=== PATIENT | female | born 1965 | race Caucasian/White ===

== ENCOUNTER 2017-10-02 13:05 | Observation (INO) ==
[2017-10-02] MEDS ORDERED: Piperacillin/Tazobactam 3.375 GM in D5% in Water (Mini-Bag+) 100 ML IVPB ONE (13:56)
--- NOTE | 2017-10-02 13:59 | Emergency Department Note ---
Disposition Clinical Impression: Cat bite Qualifiers: Encounter type: initial encounter Qualified Code(s): W55.01XA - Bitten by cat, initial encounter Cellulitis Qualifiers: Site of cellulitis: extremity Site of cellulitis of extremity: upper extremity Laterality: unspecified laterality Qualified Code(s): L03.119 - Cellulitis of unspecified part of limb Disposition: Admitted As Inpatient Condition: Good Referrals: Nuria Bethea DO [Primary Care Provider] - Forms: ED Satisfaction Letter Time of Disposition: 14:08 Animal Bite HPI - General Chief Complaint: ED Animal Bite Stated Complaint: Cat bite/scratch on hand Time Seen by Provider: 10/02/17 13:53 Source: patient Limitations: no limitations Nursing Notes Reviewed: Yes Vital Signs Reviewed: Yes - History of Present Illness HPI Narrative: 52-year-old with Bite yesterday she was taking her To the that and it bit her in the left hand and scratched her right. Her left hand is markedly swollen and red and warm to touch today. The patient has had the cat For 3 years it's up to date on his immunizations. Pt Subjective Complaint: animal bite Onset (ago): hour(s) Animal: cat (24) Description of Animal: household pet Mechanism: bite, scratch Bilateral: hand Pain Description: burning Pain Scale: 4 Context: provoked Associated symptoms: Reports: erythema - Related Data Previous Rx's Medication Instructions Recorded Cyclobenzaprine [Flexeril] 10 mg PO TID #20 tablet 12/10/15 Ibuprofen [Motrin] 600 mg PO Q8HR #20 tab 12/10/15 predniSONE [PredniSONE] 40 mg PO DAILY #4 tablet 12/10/15 Naproxen [Naprosyn] 500 mg PO BID PRN #15 tablet 03/30/16 Diclofenac Sodium [Voltaren] 50 mg PO Q8HR #30 tablet. 01/21/17 Tramadol HCl [Ultram] 50 mg PO QID PRN #20 tab 01/21/17 predniSONE [PredniSONE] 60 mg PO DAILY #15 tablet 01/21/17 Allergies Allergy/AdvReac Type Severity Reaction Status Date / Time No Known Allergies Allergy Verified 10/02/17 14:15 All systems ED: reviewed and negative except as stated. Constitutional: Denies: fever, chills, weakness, weight change Eyes: Denies: eye pain, eye discharge, vision change ENT ED: Denies: ear pain, throat pain, dental pain, hearing loss, epistaxis, congestion, dysphagia Cardiovascular: Denies: chest pain, palpitations, dyspnea on exertion, edema, syncope Respiratory: Denies: cough, dyspnea, wheezes, hemoptysis, stridor Gastrointestinal: Denies: abdominal pain, nausea, vomiting, diarrhea, constipation, hematemesis, melena, hematochezia Genitourinary: Denies: dysuria, frequency, hematuria, discharge Musculoskeletal: Reports: arthralgia. Denies: back pain, neck pain, myalgia Integumentary: Denies: rash, abrasion, lesions Neurological: Denies: headache, weakness, numbness, paresthesias, confusion, abnormal gait, vertigo Psychiatric: Denies: anxiety, depression, suicidal thoughts, homicidal thoughts , auditory hallucinations, visual hallucinations Endocrine: Denies: fatigue Hematological/Lymphatic: Denies: easy bleeding, easy bruising Allergic/Immunologic: Denies: facial swelling, urticaria Past Medical History - Past Medical History Medical history: Reports: hypertension Surgical history: Reports: breast surgery Psychiatric history: Reports: no psych history - Social History Smoking Status: Former smoker Smokeless Tobacco Status: No Alcohol use: Reports: none Drug use: Reports: none Physical Exam - General Limitations: no limitations General appearance: alert, in no apparent distress - Head Head exam: atraumatic, normocephalic, normal inspection - Eye Eye exam: Present: normal appearance, PERRL, EOMI - ENT ENT exam: normal exam, normal oropharynx, mucous membranes moist - Neck Neck exam: Present: normal inspection, full ROM, trachea midline - Chest Chest inspection: Present: normal inspection, symmetric chest wall rise - Respiratory Respiratory exam: Present: normal lung sounds bilaterally - Cardiovascular Cardiovascular exam: Present: regular rate, normal rhythm, normal heart sounds - Abdominal Exam Abdominal exam: Present: soft, Non-Tender. Absent: tenderness, distention, guarding, rebound, rigidity - Expanded Upper Extremity Exam Hand exam: Present: tenderness, swelling, erythema Vascular exam: Normal: capillary refill, radial pulse - Expanded Lower Extremity Exam Neurovascular/Tendon exam: Absent: motor deficit, sensory deficit, tendon deficit Gait: observed and normal - Back Exam Back exam: Present: normal inspection, full ROM. Absent: tenderness - Neurological Exam Neurological exam: Present: alert, oriented X3 - Psychiatric Psychiatric exam: Present: normal affect, normal mood - Skin Skin exam: Present: warm, dry, intact, normal color Course - Reevaluation(s) Reevaluation #1: 52-year-old with a Bite yesterday on her hand with marked redness and swelling of the hand. Patient will be admitted for IV antibiotics. Time: 14:26 - Consultations Consultation #1: Discussed with , admit. Time: 14:26 Vital Signs Temperature 98.4 F 10/02/17 13:18 Pulse Rate 90 10/02/17 13:18 Respiratory Rate 16 10/02/17 13:18 Blood Pressure 145/85 10/02/17 13:18 O2 Sat by Pulse Oximetry 98 10/02/17 13:18 Temperature 98.4 F 10/02/17 13:18 Pulse Rate 90 10/02/17 13:18 Respiratory Rate 16 10/02/17 13:18 Blood Pressure 145/85 10/02/17 13:18 O2 Sat by Pulse Oximetry 98 10/02/17 13:18 Oxygen Delivery Oxygen Delivery Room Air Animal Bite - Radiology Data Radiology results reviewed: Yes I reviewed the patient's radiology results. Hand X-Ray 10/02/17 13:54 IMPRESSION: No radiographic findings of osteomyelitis, however, MRI is more sensitive in detection of early osteomyelitis as clinically indicated. Age-indeterminate fracture of the 5th metacarpal head sesamoid versus a congenital bipartite morphology, recommend correlation with tenderness at this site and follow-up should radiography could be performed as clinically indicated. Please note that the sesamoid bones along the volar aspect of the 5th metacarpal bone for correlation with point tenderness. Presented to any previously performed radiography would also be helpful to determine the chronicity of this finding. D/ / Lon Dewitt MD / Lon Dewitt MD Interpreting Provider: Lon Dewitt MD
[2017-10-02] MEDS ORDERED: Tdap (Boostrix) Vaccine 0.5 ML SYRINGE IM ONE (14:01)
[2017-10-02 14:31] LABS: Basophils # 0.1 K/mcL (0.0-0.2); Basophils % 0.6 %; Eosinophils # 0.4 K/mcL (0.0-0.6); Eosinophils % 2.3 %; Hematocrit 41.1 % (35.3-44.9); Hemoglobin 13.6 g/dL (11.5-15.4); Immature Granulocytes % 0.4 % (0-4); Lymphocytes # 2.6 K/mcL (0.6-4.6); Lymphocytes % 16.1 %; Mean Corpuscular HGB Conc 33.1 g/dL (31.6-35.5); Mean Corpuscular Hemoglobin 29.2 pg (28.0-33.3); Mean Corpuscular Volume 88.2 fL (83.0-100.0); Mean Platelet Volume 10.2 fL (9.4-12.4); Monocytes # 1.5 K/mcL (0.0-1.3); Monocytes % 9.4 %; Neutrophils # 11.6 K/mcL (1.6-8.9); Platelet Count 321 K/mcL (140-400); Red Blood Count 4.66 M/mcL (3.82-4.97); Red Cell Distribution Width 13.9 % (11.5-14.5); Segmented Neutrophils % 71.2 %
[2017-10-02] MEDS ORDERED: Piperacillin/Tazobactam 3.375 GM in Water for inj. (sterile) 20 ML 20 ML IVP ONE (15:00)
[2017-10-02 15:11] LABS: BUN/Creatinine Ratio 16 (6-26); Blood Urea Nitrogen 11 mg/dL (6-20); Calcium 9.2 mg/dL (8.6-10.3); Carbon Dioxide 24 mEq/L (23-29); Chloride 103 mEq/L (98-107); Glucose 90 mg/dL (70-105); Osmolality,Calculated 281 (280-300); Potassium 3.6 mEq/L (3.5-5.1); Sodium 136 mEq/L (136-145); eGFR For African Americans > 60 (> 60); eGFR For Non-African Americans > 60 (> 60)
[2017-10-02] MEDS ORDERED: Naloxone 0.4 MG/ML INJ IVP PRN (15:34)
[2017-10-02] MEDS ORDERED: Acetaminophen 325 MG TABLET PO PRN (15:34)
--- NOTE | 2017-10-02 15:54 | Internal Med History&Physical ---
Date of Encounter: 10/02/17 Time of Encounter: 15:51 Assessment and Plan (1) Cellulitis Current visit: Yes Status: Acute The patient does have significant swelling and tenderness on the dorsum of the left hand. She also had some redness on the left hand on the dorsum is well. There is a couple of scratches on the left forearm. She does not have swelling on her right hand at the moment. The patient has received a dose of Zosyn. We will switch that to Unasyn. Follow-up cultures. We will torin the area to monitor improvement or worsening of cellulitis. No need for any surgical consult at the moment. We will check an MRI of that area. The x-ray did mention age indeterminate fracture of the fifth metacarpal head sesamoid possibly. She does not have any tenderness in that area however on exam. Continue with pain control. The patient received tetanus shot in the emergency department. Qualifiers: Site of cellulitis: extremity Site of cellulitis of extremity: upper extremity Laterality: left Qualified Code(s): L03.114 - Cellulitis of left upper limb (2) Hypertension Current visit: Yes Status: Acute Continue home meds including amlodipine and hydrochlorothiazide. Patient's blood pressure is stable. Qualifiers: Hypertension type: essential hypertension Qualified Code(s): I10 - Essential (primary) hypertension (3) DVT prophylaxis Current visit: Yes Status: Acute [facility] Internal Medicine - H&P: HPI Chief complaint: Hand swelling Admitted From: Home Plans for Post Hospital Care: Home History of present illness: Ms. Land is a 52 year old female who has a history of hypertension as well as chronic back pain with spinal stenosis and peripheral neuropathy who presents with left hand swelling that has started yesterday noon after a cat Bite. She was in the process of putting her cat into the carrier before going to the cat' s veterinary appointment. That is when the cat bit her. She was also scratched on her right forearm. She experienced pain right after that. She noticed swelling throughout the day. In the morning she noticed redness in more swelling. She denies any fever or sweats. Denies any headache nausea or vomiting chest pain shortness of breath abdominal pain and urinary symptoms or neurological symptoms. She presented to the emergency department workup showed a white count elevation. She had x-ray of her left hand done. She was given a tetanus shot was given a dose of Zosyn and we will call to admit the patient. She is being admitted for cellulitis of her left hand after a cat bite. Past Med Surg Social Fam HX - Past Medical History Medical history: hypertension Psychiatric history: no psych history - Past Surgical History Surgical History: breast surgery - Social History Smoking Status: Former smoker Smokeless Tobacco Status: No Alcohol use: none Drug use: none Internal Medicine - H&P: Meds Citalopram [CeleXA] 20 mg PO DAILY 10/02/17 [History] Doxepin HCl [Doxepin HCl] 10 mg PO HS 10/02/17 [History] Gabapentin [Neurontin] 300 mg PO Q8H PRN 10/02/17 [History] Meloxicam [Meloxicam] 15 mg PO DAILY 10/02/17 [History] Ranitidine HCl [Zantac] 150 mg PO DAILY 10/02/17 [History] amLODIPine [Norvasc] 5 mg PO DAILY 10/02/17 [History] hydroCHLOROthiazide [Hydrochlorothiazide] 25 mg PO DAILY 10/02/17 [History] 3 Allergy/AdvReac Type Severity Reaction Status Date / Time No Known Allergies Allergy Verified 10/02/17 14:15 All Systems PM: A 10-system review of systems was performed and is negative for pertinent findings except as documented above in the HPI. Review of systems: All systems reviewed are negative except as mentioned above - Constitutional Vitals: Temp Pulse Resp BP Pulse Ox 98.4 F 90 16 145/85 98 10/02/17 13:18 10/02/17 13:18 10/02/17 13:18 10/02/17 13:18 10/02/17 13:18 Exam: GEN: NAD HEENT: AT, NC, No cyanosis, oral mucosa is moist, No JVD Lymphatics: No lymphadenoapthy Eyes: Extrocular muscles intact, anicteric CVS:RRR. S1, S2, No m/r/g RESP: CTAB ABD: Soft, NT, ND, +BS EXT: No edema, No rashes, 2+ DP. Good left hand with tenderness, swelling, erythema NEURO: Nonfocal, CN II-XII intact, No focal motor or sensory deficits Psych: Cooperative, Not anxious or depressed Internal Med - H&P Results - Labs CBC & Chem 7: 10/02/17 14:14 10/02/17 14:14
[2017-10-02] MEDS: Ampicillin/Sulbactam 1,500 MG in 0.9 % Sodium Chloride Mini Bag 100 ML IVPB SCH ×2 (16:59→23:35)
[2017-10-02] MEDS: 0.9 % Sodium Chloride 1,000 ML IVC SCH (16:59)
[2017-10-02] MEDS: *HR* HYDROcodone/Acet 5/325 mg TABLET PO PRN (22:15)
[2017-10-03] MEDS: *HR* HYDROmorphone (PF) 1 MG/ML SYRINGE IVP PRN (03:42)
[2017-10-03] MEDS: 0.9 % Sodium Chloride 1,000 ML IVC SCH (05:29)
[2017-10-03] MEDS: Ampicillin/Sulbactam 1,500 MG in 0.9 % Sodium Chloride Mini Bag 100 ML IVPB SCH ×3 (05:31→16:06)
[2017-10-03] MEDS: *HR* Enoxaparin 40 MG/0.4 ML SYRINGE SQ SCH (05:32)
[2017-10-03 06:21] LABS: Basophils # 0.1 K/mcL (0.0-0.2); Eosinophils # 0.4 K/mcL (0.0-0.6); Eosinophils % 3.6 %; Hematocrit 37.2 % (35.3-44.9); Hemoglobin 12.1 g/dL (11.5-15.4); Immature Granulocytes % 0.3 % (0-4); Lymphocytes # 2.7 K/mcL (0.6-4.6); Lymphocytes % 23.9 %; Mean Corpuscular HGB Conc 32.5 g/dL (31.6-35.5); Mean Corpuscular Hemoglobin 29.1 pg (28.0-33.3); Mean Corpuscular Volume 89.4 fL (83.0-100.0); Mean Platelet Volume 10.2 fL (9.4-12.4); Monocytes # 1.2 K/mcL (0.0-1.3); Monocytes % 10.4 %; Nucleated Red Blood Cells 0.2 /100 WBC (0); Platelet Count 275 K/mcL (140-400); Red Blood Count 4.16 M/mcL (3.82-4.97); Red Cell Distribution Width 13.9 % (11.5-14.5); Segmented Neutrophils % 60.8 %
[2017-10-03 07:03] LABS: BUN/Creatinine Ratio 18 (6-26); Blood Urea Nitrogen 11 mg/dL (6-20); Calcium 8.4 mg/dL (8.6-10.3); Carbon Dioxide 23 mEq/L (23-29); Chloride 107 mEq/L (98-107); Glucose 83 mg/dL (70-105); Osmolality,Calculated 285 (280-300); Potassium 3.9 mEq/L (3.5-5.1); Sodium 138 mEq/L (136-145); eGFR For African Americans > 60 (> 60); eGFR For Non-African Americans > 60 (> 60)
[2017-10-03] MEDS: Famotidine 20 MG TABLET PO SCH (07:17)
[2017-10-03] MEDS: amLODIPine 5 MG TABLET PO SCH (07:18)
[2017-10-03] MEDS: hydroCHLOROthiazide 25 MG TABLET PO SCH (07:18)
[2017-10-03] MEDS: *HR* HYDROcodone/Acet 5/325 mg TABLET PO PRN ×3 (11:09→21:36)
--- NOTE | 2017-10-03 17:14 | Internal Med Progress Note ---
Date of Encounter: 10/04/17 Time of Encounter: 17:14 - Subjective Interval history: Assessment and Plan (1) Cellulitis Current visit: Yes Status: Acute The patient does have significant swelling and tenderness on the dorsum of the left hand. She also had some redness on the left hand on the dorsum is well. There is a couple of scratches on the left forearm. She does not have swelling on her right hand at the moment. The patient has received a dose of Zosyn which. Unasyn.was started instead. Follow-up cultures. We will torin the area to monitor improvement or worsening of cellulitis. No need for any surgical consult at the moment. MRI of that area did not show eo Oseomylitis or abscess. The x-ray did mention age indeterminate fracture of the fifth metacarpal head sesamoid possibly. She does not have any tenderness in that area however on exam. Continue with pain control. The patient received tetanus shot in the emergency department. Cellulitis worsening. Change to Zosyn and Vanc Qualifiers: Site of cellulitis: extremity Site of cellulitis of extremity: upper extremity Laterality: left Qualified Code(s): L03.114 - Cellulitis of left upper limb Worsenin (2) Hypertension Current visit: Yes Status: Acute Continue home meds including amlodipine and hydrochlorothiazide. Patient's blood pressure is stable. Qualifiers: Hypertension type: essential hypertension Qualified Code(s): I10 - Essential (primary) hypertension (3) DVT prophylaxis Current visit: Yes - Constitutional Vitals: Temp Pulse Resp BP Pulse Ox 97.9 F 85 18 115/78 94 10/03/17 15:44 10/03/17 15:44 10/03/17 15:44 10/03/17 15:44 10/03/17 15:44 General appearance: Present: A&O X 3, no acute distress - Head Head exam: Present: atraumatic, normocephalic - Eye Eye exam: Present: PERRL, conjuntiva pink, sclera anicteric Pupils: Present: PERRL - Neck Neck exam general surgery: Present: supple, trachea midline. Absent: lymphadenopathy - Respiratory Respiratory exam: Present: CTAB. Absent: accessory muscle use, rales, rhonchi, wheezes - Cardiovascular Cardiovascular exam: Present: RRR, +S1, +S2. Absent: diastolic murmur, gallop, rubs, systolic murmur - GI/Abdominal GI/Abdominal exam: Present: normal bowel sounds, soft, no peritoneal signs. Absent: distended, tenderness - Extremities Exam Extremities exam: Present: joint swelling, tenderness, warm, radial pulses palpable and symmetrical. Absent: calf tenderness, cyanotic, pedal edema - Neurological Exam Neurological exam: Present: CN II-XII intact, oriented X3, no focal deficits. Absent: pronater drift, facial droop, speech deficit - Skin Skin exam: Present: dry, intact Additional comments: The area of cellulitis on the left hand has spread up her arm and the edema is worse. The erythema and wselling of her right hand is also worse. Purulent drainage was noted from her left hand. Internal Medicine: Result - Labs CBC & Chem 7: 10/04/17 05:56 10/03/17 06:06 Labs: Short CBC 10/03/17 Range/Units 06:06 WBC 11.4 H (4.3-11.1) K/mcL Hgb 12.1 D (11.5-15.4) g/dL Hct 37.2 (35.3-44.9) % Plt Count 275 (140-400) K/mcL Neutrophils # 7.0 (1.6-8.9) K/mcL BMP 10/03/17 06:06 Sodium 138 Potassium 3.9 Chloride 107 Carbon Dioxide 23 BUN 11 Creatinine 0.60 Glucose 83 Calcium 8.4 L - Impressions Impressions Hand MRI 10/02/17 16:26 IMPRESSION: 1. Dorsal subcutaneous edema compatible with cellulitis. No drainable fluid collection. 2. No acute osseous abnormality. No osteomyelitis. D/ / Migue Jeter MD / Migue Jeter MD Interpreting Provider: Migue Jeter MD Consult Discharge Plan - Plan Referrals: Nuria Bethea DO [Primary Care Provider] -
[2017-10-03] MEDS: Vancomycin 1,250 MG in D5% in Water 250 ML IVPB SCH (20:23)
[2017-10-03] MEDS: Piperacillin/Tazobactam 3.375 GM/200 ML BAG IVPB SCH (22:15)
[2017-10-04] MEDS: *HR* Enoxaparin 40 MG/0.4 ML SYRINGE SQ SCH (05:20)
[2017-10-04] MEDS: *HR* HYDROcodone/Acet 5/325 mg TABLET PO PRN ×3 (05:20→17:37)
[2017-10-04] MEDS: Piperacillin/Tazobactam 3.375 GM/200 ML BAG IVPB SCH ×2 (05:21→17:30)
[2017-10-04 06:38] LABS: Basophils # 0.1 K/mcL (0.0-0.2); Basophils % 1.1 %; Eosinophils # 0.4 K/mcL (0.0-0.6); Eosinophils % 5.2 %; Hematocrit 34.9 % (35.3-44.9); Hemoglobin 11.5 g/dL (11.5-15.4); Immature Granulocytes % 0.2 % (0-4); Lymphocytes # 2.1 K/mcL (0.6-4.6); Lymphocytes % 25.5 %; Mean Corpuscular Hemoglobin 29.6 pg (28.0-33.3); Mean Corpuscular Volume 89.9 fL (83.0-100.0); Mean Platelet Volume 10.8 fL (9.4-12.4); Monocytes # 0.9 K/mcL (0.0-1.3); Monocytes % 10.8 %; Neutrophils # 4.7 K/mcL (1.6-8.9); Platelet Count 262 K/mcL (140-400); Red Blood Count 3.88 M/mcL (3.82-4.97); Segmented Neutrophils % 57.2 %
[2017-10-04] MEDS: hydroCHLOROthiazide 25 MG TABLET PO SCH (09:12)
[2017-10-04] MEDS: amLODIPine 5 MG TABLET PO SCH (09:12)
[2017-10-04] MEDS: Famotidine 20 MG TABLET PO SCH (09:16)
[2017-10-04] MEDS: Vancomycin 1,250 MG in D5% in Water 250 ML IVPB SCH ×2 (09:16→20:56)
--- NOTE | 2017-10-04 13:31 | Internal Med Progress Note ---
Date of Encounter: 10/04/17 Time of Encounter: 13:30 - Subjective Interval history: HPI: 52 year old woman who was bitten and scratched by her pet cat. The cat is a house pet and is up to date with all vaccinations including rabbies. She was biitten on tdorsum of her left ruiz and severely scratched on th hands and her right wrist. She noticed swelling throughout the day. In the morning she noticed redness in more swelling. She denies any fever or sweats. Denies any headache nausea or vomiting chest pain shortness of breath abdominal pain and urinary symptoms or neurological symptoms. She presented to the emergency department workup showed a white count elevation. She had x-ray of her left hand done. She was given a tetanus shot was given a dose of Zosyn was changed to Unasyn at the time of admission. Her edema, pain and erythema became much worse over the next 4 hours and pus began draining from the wound. Anb were changed to nc and Zosyn. Interval Changes: The erythema and swelling is improved. No fevers, chills or system symptoms. She is now having diarrhea Physical Exam: See below Assessment and Plan Cellulitis The patient does have significant swelling and tenderness on the dorsum of the left hand. She also had some redness on the left hand on the dorsum is well. There is a couple of scratches on the left forearm. She does not have swelling on her right hand at the moment. The patient has received a dose of Zosyn which. Unasyn.was started instead. Follow-up cultures. We will torin the area to monitor improvement or worsening of cellulitis. No need for any surgical consult at the moment. MRI of that area did not show Oseomylitis or abscess. The x-ray did mention age indeterminate fracture of the fifth metacarpal head sesamoid possibly. She does not have any tenderness in that area however on exam. Continue with pain control. The patient received tetanus shot in the emergency department. Cellulitis worsening. Change to Zosyn and Vanc Acute watery diarrhea: Sent forC. diff test and contact precautions started Hypertension Continue home meds including amlodipine and hydrochlorothiazide. Patient's blood pressure is stable. DVT prophylaxis: Yes - Constitutional Vitals: Temp Pulse Resp BP Pulse Ox 97.8 F 82 16 122/78 94 10/04/17 12:09 10/04/17 12:09 10/04/17 12:09 10/04/17 12:09 10/04/17 12:09 General appearance: Present: A&O X 3, no acute distress, answers questions appropriately - Head Head exam: Present: atraumatic, normocephalic - Eye Eye exam: Present: EOMI, PERRL, conjuntiva pink, sclera anicteric Pupils: Present: PERRL - Neck Neck exam general surgery: Present: supple, trachea midline. Absent: lymphadenopathy - Respiratory Respiratory exam: Present: CTAB. Absent: accessory muscle use, rales, rhonchi, wheezes - Cardiovascular Cardiovascular exam: Present: RRR, +S1, +S2. Absent: diastolic murmur, gallop, rubs, systolic murmur - GI/Abdominal GI/Abdominal exam: Present: normal bowel sounds, soft, no peritoneal signs. Absent: distended, tenderness - Extremities Exam Extremities exam: Present: warm, radial pulses palpable and symmetrical. Absent : calf tenderness, cyanotic, pedal edema - Neurological Exam Neurological exam: Present: CN II-XII intact, oriented X3, no focal deficits. Absent: pronater drift, facial droop, speech deficit - Skin Skin exam: Present: dry, intact Additional comments: The area of cellulitisis better this am and swelling is decreased. No further purulent drainage Internal Medicine: Result - Labs CBC & Chem 7: 10/04/17 05:56 10/03/17 06:06 Labs: Short CBC 10/04/17 Range/Units 05:56 WBC 8.2 (4.3-11.1) K/mcL Hgb 11.5 (11.5-15.4) g/dL Hct 34.9 L (35.3-44.9) % Plt Count 262 (140-400) K/mcL Neutrophils # 4.7 (1.6-8.9) K/mcL Consult Discharge Plan - Plan Referrals: Nuria Bethea DO [Primary Care Provider] -
[2017-10-05] MEDS: Piperacillin/Tazobactam 3.375 GM/200 ML BAG IVPB SCH ×3 (00:08→16:56)
[2017-10-05] MEDS: *HR* HYDROcodone/Acet 5/325 mg TABLET PO PRN ×2 (00:08→07:47)
[2017-10-05] MEDS: *HR* Enoxaparin 40 MG/0.4 ML SYRINGE SQ SCH (05:10)
[2017-10-05] MEDS: Famotidine 20 MG TABLET PO SCH (07:47)
[2017-10-05] MEDS: Vancomycin 1,250 MG in D5% in Water 250 ML IVPB SCH ×2 (07:47→19:56)
[2017-10-05] MEDS ORDERED: Ondansetron 4 MG/2 ML VIAL IVP PRN (08:03)
[2017-10-05] MEDS: amLODIPine 5 MG TABLET PO SCH (08:31)
[2017-10-05] MEDS: hydroCHLOROthiazide 25 MG TABLET PO SCH (08:32)
[2017-10-05] MEDS: Gabapentin 300 MG CAPSULE PO PRN ×2 (08:36→19:56)
[2017-10-05] MEDS: *HR* HYDROmorphone (PF) 1 MG/ML SYRINGE IVP PRN (22:18)
--- NOTE | 2017-10-05 22:58 | Internal Med Progress Note ---
Date of Encounter: 10/05/17 Time of Encounter: 18:10 - Subjective Interval history: HPI: 52 year old woman who was bitten and scratched by her pet cat. The cat is a house pet and is up to date with all vaccinations including rabbies. She was biitten on tdorsum of her left ruiz and severely scratched on th hands and her right wrist. She noticed swelling throughout the day. In the morning she noticed redness in more swelling. She denies any fever or sweats. Denies any headache nausea or vomiting chest pain shortness of breath abdominal pain and urinary symptoms or neurological symptoms. She presented to the emergency department workup showed a white count elevation. She had x-ray of her left hand done. She was given a tetanus shot was given a dose of Zosyn was changed to Unasyn at the time of admission. Her edema, pain and erythema became much worse over the next 4 hours and pus began draining from the wound. An were changed to Vanc and Zosyn. Interval Changes: 10-04-2017: The erythema and swelling is improved. No fevers, chills or systemic symptoms. She is now having diarrhea 10-05-2017: The erythema and swelling continue to improved. Still no fevers, chills or other systemic symptoms. Diarrhea decreased and C.diff test neg. Assessment and Plan Cellulitis The patient does have significant swelling and tenderness on the dorsum of the left hand. She also had some redness on the left hand on the dorsum is well. There is a couple of scratches on the left forearm. She does not have swelling on her right hand at the moment. The patient has received a dose of Zosyn which. Unasyn.was started instead. Follow-up cultures. We will torin the area to monitor improvement or worsening of cellulitis. No need for any surgical consult at the moment. MRI of that area did not show Oseomylitis or abscess. The x-ray did mention age indeterminate fracture of the fifth metacarpal head sesamoid possibly. She does not have any tenderness in that area however on exam. Continue with pain control. The patient received tetanus shot in the emergency department. Cellulitis worsening. Change to Zosyn and Vanc Continue current mgt with possible d/c when wound cultures and sensitivities back. Acute watery diarrhea: Improved with negative C. diff test. Hypertension Continue home meds including amlodipine and hydrochlorothiazide. Patient's blood pressure is stable. DVT prophylaxis: Ambulating frequently Physical Exam: General appearance: Present: A&O X 3, no acute distress, answers questions appropriately - Head Head exam: Present: atraumatic, normocephalic - Eye Eye exam: Present: EOMI, PERRL, conjuntiva pink, sclera anicteric Pupils: Present: PERRL - Neck Neck exam general surgery: Present: supple, trachea midline. Absent: lymphadenopathy - Respiratory Respiratory exam: Present: CTAB. Absent: accessory muscle use, rales, rhonchi, wheezes - Cardiovascular Cardiovascular exam: Present: RRR, +S1, +S2. Absent: diastolic murmur, gallop, rubs, systolic murmur - GI/Abdominal GI/Abdominal exam: Present: normal bowel sounds, soft, no peritoneal signs. Absent: distended, tenderness - Extremities Exam Extremities exam: Present: warm, radial pulses palpable and symmetrical. Absent : calf tenderness, cyanotic, pedal edema - Neurological Exam Neurological exam: Present: CN II-XII intact, oriented X3, no focal deficits. Absent: pronater drift, facial droop, speech deficit - Skin Skin exam: Present: dry, intact Additional comments: - Constitutional Vitals: Temp Pulse Resp BP Pulse Ox 97.7 F 96 17 121/75 95 10/05/17 18:32 10/05/17 18:32 10/05/17 18:32 10/05/17 18:32 10/05/17 18:32 General appearance: Present: A&O X 3, no acute distress, answers questions appropriately Internal Medicine: Result - Labs CBC & Chem 7: 10/04/17 05:56 10/03/17 06:06 Consult Discharge Plan - Plan Referrals: Nuria Bethea DO [Primary Care Provider] -
[2017-10-06] MEDS: Piperacillin/Tazobactam 3.375 GM/200 ML BAG IVPB SCH ×2 (02:02→07:49)
[2017-10-06] MEDS: *HR* Enoxaparin 40 MG/0.4 ML SYRINGE SQ SCH (05:49)
[2017-10-06] MEDS: Gabapentin 300 MG CAPSULE PO PRN (07:32)
[2017-10-06] MEDS: amLODIPine 5 MG TABLET PO SCH (07:32)
[2017-10-06] MEDS: hydroCHLOROthiazide 25 MG TABLET PO SCH (07:33)
[2017-10-06] MEDS: Famotidine 20 MG TABLET PO SCH (07:33)
[2017-10-06] MEDS: Vancomycin 1,250 MG in D5% in Water 250 ML IVPB SCH (07:36)
[2017-10-06 09:03] LABS: Basophils # 0.1 K/mcL (0.0-0.2); Basophils % 1.2 %; Eosinophils # 0.4 K/mcL (0.0-0.6); Hematocrit 35.5 % (35.3-44.9); Hemoglobin 11.8 g/dL (11.5-15.4); Immature Granulocytes % 0.4 % (0-4); Lymphocytes # 1.7 K/mcL (0.6-4.6); Lymphocytes % 22.6 %; Mean Corpuscular HGB Conc 33.2 g/dL (31.6-35.5); Mean Corpuscular Hemoglobin 29.7 pg (28.0-33.3); Mean Corpuscular Volume 89.4 fL (83.0-100.0); Mean Platelet Volume 10.5 fL (9.4-12.4); Monocytes # 0.9 K/mcL (0.0-1.3); Monocytes % 11.6 %; Neutrophils # 4.5 K/mcL (1.6-8.9); Platelet Count 289 K/mcL (140-400); Red Blood Count 3.97 M/mcL (3.82-4.97); Red Cell Distribution Width 13.9 % (11.5-14.5); Segmented Neutrophils % 59.2 %
[2017-10-06 09:29] LABS: Calcium 8.7 mg/dL (8.6-10.3); Potassium 3.9 mEq/L (3.5-5.1)
[2017-10-06 12:47] VITALS: BP 122/76
--- NOTE | 2017-10-06 14:14 | Internal Med Progress Note ---
Date of Encounter: 10/06/17 Time of Encounter: 14:14 - Subjective Interval history: HPI: 52 year old woman who was bitten and scratched by her pet cat. The cat is a house pet and is up to date with all vaccinations including rabbies. She was biitten on tdorsum of her left ruiz and severely scratched on th hands and her right wrist. She noticed swelling throughout the day. In the morning she noticed redness in more swelling. She denies any fever or sweats. Denies any headache nausea or vomiting chest pain shortness of breath abdominal pain and urinary symptoms or neurological symptoms. She presented to the emergency department workup showed a white count elevation. She had x-ray of her left hand done. She was given a tetanus shot was given a dose of Zosyn was changed to Unasyn at the time of admission. Her edema, pain and erythema became much worse over the next 4 hours and pus began draining from the wound. An were changed to Vanc and Zosyn. Interval Changes: 10-04-2017: The erythema and swelling is improved. No fevers, chills or systemic symptoms. She is now having diarrhea 10-05-2017: The erythema and swelling continue to improved. Still no fevers, chills or other systemic symptoms. Diarrhea decreased and C.diff test neg. Assessment and Plan Cellulitis The patient does have significant swelling and tenderness on the dorsum of the left hand. She also had some redness on the left hand on the dorsum is well. There is a couple of scratches on the left forearm. She does not have swelling on her right hand at the moment. The patient has received a dose of Zosyn which. Unasyn.was started instead. Follow-up cultures. We will torin the area to monitor improvement or worsening of cellulitis. No need for any surgical consult at the moment. MRI of that area did not show Oseomylitis or abscess. The x-ray did mention age indeterminate fracture of the fifth metacarpal head sesamoid possibly. She does not have any tenderness in that area however on exam. Continue with pain control. The patient received tetanus shot in the emergency department. Cellulitis worsening. Change to Zosyn and Vanc Continue current mgt with possible d/c when wound cultures and sensitivities back. Acute watery diarrhea: Improved with negative C. diff test. Hypertension Continue home meds including amlodipine and hydrochlorothiazide. Patient's blood pressure is stable. DVT prophylaxis: Ambulating frequently Physical Exam: General appearance: Present: A&O X 3, no acute distress, answers questions appropriately - Head Head exam: Present: atraumatic, normocephalic - Eye Eye exam: Present: EOMI, PERRL, conjuntiva pink, sclera anicteric Pupils: Present: PERRL - Neck Neck exam general surgery: Present: supple, trachea midline. Absent: lymphadenopathy - Respiratory Respiratory exam: Present: CTAB. Absent: accessory muscle use, rales, rhonchi, wheezes - Cardiovascular Cardiovascular exam: Present: RRR, +S1, +S2. Absent: diastolic murmur, gallop, rubs, systolic murmur - GI/Abdominal GI/Abdominal exam: Present: normal bowel sounds, soft, no peritoneal signs. Absent: distended, tenderness - Extremities Exam Extremities exam: Present: warm, radial pulses palpable and symmetrical. Absent : calf tenderness, cyanotic, pedal edema - Neurological Exam Neurological exam: Present: CN II-XII intact, oriented X3, no focal deficits. Absent: pronater drift, facial droop, speech deficit - Skin Skin exam: Present: dry, intact Additional comments: - Constitutional Vitals: Temp Pulse Resp BP Pulse Ox 98.8 F 90 16 122/76 97 10/06/17 12:42 10/06/17 12:42 10/06/17 12:42 10/06/17 12:42 10/06/17 12:42 General appearance: Present: A&O X 3, no acute distress, answers questions appropriately Internal Medicine: Result - Labs CBC & Chem 7: 10/06/17 08:32 10/06/17 08:32 Labs: Short CBC 10/06/17 Range/Units 08:32 WBC 7.6 (4.3-11.1) K/mcL Hgb 11.8 (11.5-15.4) g/dL Hct 35.5 (35.3-44.9) % Plt Count 289 (140-400) K/mcL Neutrophils # 4.5 (1.6-8.9) K/mcL BMP 10/06/17 08:32 Sodium 137 Potassium 3.9 Chloride 107 Carbon Dioxide 24 BUN 10 Creatinine 1.33 H Glucose 103 Calcium 8.7 Consult Discharge Plan - Plan Referrals: Nuria Bethea DO [Primary Care Provider] -
--- NOTE | 2017-10-06 14:39 | Discharge Summary ---
Date of Encounter: 10/06/17 Time of Encounter: 14:35 - Discharge Medications Prescriptions: Clindamycin [Cleocin] 450 mg PO Q8HR 7 Days #21 capsule Doxycycline 100 mg PO BID 7 Days #14 capsule Home Medications: Citalopram [CeleXA] 20 mg PO DAILY 10/02/17 [History] Doxepin HCl 10 mg PO HS 10/02/17 [History] Gabapentin [Neurontin] 300 mg PO Q8H PRN 10/02/17 [History] Meloxicam 15 mg PO DAILY 10/02/17 [History] Ranitidine HCl [Zantac] 150 mg PO DAILY 10/02/17 [History] amLODIPine [Norvasc] 5 mg PO DAILY 10/02/17 [History] hydroCHLOROthiazide [Hydrochlorothiazide] 25 mg PO DAILY 10/02/17 [History] Clindamycin [Cleocin] 450 mg PO Q8HR 7 Days #21 capsule 10/06/17 [Rx] Doxycycline 100 mg PO BID 7 Days #14 capsule 10/06/17 [Rx] amLODIPine [Norvasc] 5 mg PO DAILY tablet 10/06/17 [Rx] Allergies/Adverse Reactions: 3 Allergy/AdvReac Type Severity Reaction Status Date / Time No Known Allergies Allergy Verified 10/02/17 14:15 Date of admission: 10/02/17 15:16 Primary care physician: Ian Burroughs Discharging clinician: Tae Martinez - Patient Status Disposition: Home, Self-Care Condition: Good - Discharge Instructions Follow Up With: Nuria Bethea DO [Primary Care Provider] - (Web request sent 10/06/2017. Office will call patient at home with an appointment date and time. ) Additional Instructions: Follow-up appointments: If there is not an appointment listed below, please call your physician and schedule a follow-up appointment. If you have congestive heart failure and your symptoms return, make an appointment with your physician. Medication List: Carry an up to date list of medications you are taking at all time. We have given you an updated medication list including any new medications that you have been prescribed. Please provide that list to your primary provider Symptoms: If your condition changes or you experience any of the following symptoms, notify your physician immediately: Unusual or worsening pain, fever, persistent nausea and vomiting, bleeding, increase in swelling (especially in your legs), sudden weight gain, extreme dizziness, chest pain, increased drainage or redness from a wound or incision. Go to the emergency department if you experience a problem with breathing. Weights: If you have a history of swelling or shortness of breath, weigh yourself daily and notify your physician if you have a weight gain of two or more pounds in one day or 5 or more pounds in a week. If you experience any of the warning signs for stroke: Sudden numbness or weakness of the face, arm or leg; especially on one side of the body, sudden confusion, trouble speaking or understanding, sudden trouble seeing in one or both eyes, sudden trouble walking, dizziness, loss of balance or coordination, sudden sever headache with no cause; Call 911 or go to the emergency room. Stroke is a medical emergency. Some risk factors for stroke: Age, cigarette smoking, diabetes, excessive alcohol consumption, family history , high blood pressure, overweight, physical inactivity, prior stroke, heart attack, diagnosis of carotid artery stenosis or other artery disease. If you smoke, STOP: Smoking or tobacco use significantly increases your risk of heart and lung disease. Your chance of disease greatly increases if you continue to smoke. For more information, call the [place] tobacco quit line for smoking cessation QUIT-NOW ( ) Hospital course: 52 year old woman who was bitten and scratched by her pet cat. The cat is a house pet and is up to date with all vaccinations including rabbies. She was biitten on tdorsum of her left ruiz and severely scratched on th hands and her right wrist. She noticed swelling throughout the day. In the morning she noticed redness in more swelling. She denies any fever or sweats. Denies any headache nausea or vomiting chest pain shortness of breath abdominal pain and urinary symptoms or neurological symptoms. She presented to the emergency department workup showed a white count elevation. She had x-ray of her left hand done. She was given a tetanus shot was given a dose of Zosyn was changed to Unasyn at the time of admission. Her edema, pain and erythema became much worse over the next 4 hours and pus began draining from the wound. An were changed to Vanc and Zosyn. After her wound cultures returned negative and she showed clinical improvement and no evidence of osteomylitis or tendon sheath involvement on MRI her antibiotics were changed to Clinda and Doxycycline and she was discharged home. She had watery diarrhe after broad spectrum antibiotics were started but her stool was Cdiff neg. I Assessment and Plan Cellulitis The patient does have significant swelling and tenderness on the dorsum of the left hand. She also had some redness on the left hand on the dorsum is well. There is a couple of scratches on the left forearm. She does not have swelling on her right hand at the moment. The patient has received a dose of Zosyn which. Unasyn.was started instead. Follow-up cultures. We will torin the area to monitor improvement or worsening of cellulitis. No need for any surgical consult at the moment. MRI of that area did not show Oseomylitis or abscess. The x-ray did mention age indeterminate fracture of the fifth metacarpal head sesamoid possibly. She does not have any tenderness in that area however on exam. Continue with pain control. The patient received tetanus shot in the emergency department. Cellulitis worsening. Change to Zosyn and Vanc Continue current mgt with possible d/c when wound cultures and sensitivities back. Acute watery diarrhea: Improved with negative C. diff test. Hypertension Continue home meds including amlodipine and hydrochlorothiazide. Patient's blood pressure is stable. DVT prophylaxis: Ambulating frequently Physical Exam: General appearance: Present: A&O X 3, no acute distress, answers questions appropriately - Head Head exam: Present: atraumatic, normocephalic - Eye Eye exam: Present: EOMI, PERRL, conjuntiva pink, sclera anicteric Pupils: Present: PERRL - Neck Neck exam general surgery: Present: supple, trachea midline. Absent: lymphadenopathy - Respiratory Respiratory exam: Present: CTAB. Absent: accessory muscle use, rales, rhonchi, wheezes - Cardiovascular Cardiovascular exam: Present: RRR, +S1, +S2. Absent: diastolic murmur, gallop, rubs, systolic murmur - GI/Abdominal GI/Abdominal exam: Present: normal bowel sounds, soft, no peritoneal signs. Absent: distended, tenderness - Extremities Exam Extremities exam: Present: warm, radial pulses palpable and symmetrical. Absent : calf tenderness, cyanotic, pedal edema - Neurological Exam Neurological exam: Present: CN II-XII intact, oriented X3, no focal deficits. Absent: pronater drift, facial droop, speech deficit - Skin Skin exam: Present: dry, intact Additional comments: Time spent discussing smoking cessation with patient: more than 10 minutes - Time Spent with Patient Total time spent providing and/or coordinating discharge services: Greater than 30 minutes - Constitutional Vitals: Temp Pulse Resp BP Pulse Ox 98.8 F 90 16 122/76 97 10/06/17 12:42 10/06/17 12:42 10/06/17 12:42 10/06/17 12:42 10/06/17 12:42 General appearance: Present: A&O X 3, no acute distress, answers questions appropriately
[2017-10-06] MEDS ORDERED: Aminoglycoside Consult 1 EACH MC ONE (15:58)
[2017-10-06] MEDS ORDERED: Doxycycline 100 MG CAPSULE PO SCH (21:00)
[2017-10-07] MEDS ORDERED: Vancomycin 1,250 MG in D5% in Water 250 ML IVPB SCH (08:00)
== END 2017-10-06 15:59 | disposition home or self-care (01) ==
LOC: EMEROO 13:05 → 3NENU 13:05
PROVIDERS: ADMIT Internal Medicine; ATTEND Hospitalist

== ENCOUNTER 2018-05-18 08:24 | Observation (INO) ==
--- NOTE | 2018-05-18 08:38 | Emergency Department Note ---
Disposition Clinical Impression: Seizure Disposition: Admitted As Inpatient Condition: Good Referrals: Nuria Bethea DO [Primary Care Provider] - Forms: ED Satisfaction Letter Time of Disposition: 09:50 General Adult HPI - General Chief complaint: ED Seizure Stated complaint: seizure Time Seen by Provider: 05/18/18 08:26 Source: patient, EMS Mode of arrival: EMS Limitations: no limitations Nursing Notes Reviewed: Yes Vital Signs Reviewed: Yes - History of Present Illness HPI Narrative: Patient is a 53-year-old female that presents emergency department for possible seizure. Patient arrived at the emergency department via EMS. EMS states that the patient's boyfriend reported that she had whole-body convulsions with foaming at the mouth. Also states that she did lose control of her bladder. EMS states that the episode lasted approximately 30 minutes per the boyfriend. Patient denies any history of previous seizures. Patient denies any recent illnesses. Reports that the patient was post ictal and confused upon arrival of EMS. Patient is unsure of what happened this morning but states that she thinks she may have had a seizure based on what EMS and her boyfriend told her. Patient states that she is feeling back to normal at this time other than being a little bit tired. - Related Data Home Medications Medication Instructions Recorded Confirmed Citalopram [CeleXA] 20 mg PO DAILY 10/02/17 05/18/18 Doxepin HCl 10 mg PO HS 10/02/17 05/18/18 Meloxicam 15 mg PO DAILY 10/02/17 05/18/18 amLODIPine [Norvasc] 5 mg PO DAILY 10/02/17 05/18/18 hydroCHLOROthiazide 25 mg PO DAILY 10/02/17 05/18/18 [Hydrochlorothiazide] raNITIdine HCl [Zantac] 150 mg PO DAILY 10/02/17 05/18/18 Amitriptyline [Elavil] 20 mg PO HS 05/18/18 05/18/18 Paroxetine [Paxil] 20 mg PO DAILY 05/18/18 05/18/18 Allergies Allergy/AdvReac Type Severity Reaction Status Date / Time No Known Allergies Allergy Verified 05/18/18 09:25 All systems ED: reviewed and negative except as stated. Cardiovascular: Denies: chest pain Respiratory: Denies: dyspnea Gastrointestinal: Denies: abdominal pain Neurological: Denies: headache, weakness, numbness, paresthesias Past Medical History - Past Medical History Medical history: Reports: other Surgical history: Reports: breast surgery Psychiatric history: Reports: no psych history - Social History Smoking Status: Never smoker Smokeless Tobacco Status: No Alcohol use: Reports: none Drug use: Reports: none Physical Exam - General Limitations: no limitations General appearance: alert, in no apparent distress - Head Head exam: atraumatic, normocephalic - Eye Eye exam: Present: normal appearance, EOMI - Neck Neck exam: Present: normal inspection, full ROM, trachea midline - Respiratory Respiratory exam: Present: normal lung sounds bilaterally. Absent: respiratory distress, wheezes - Cardiovascular Cardiovascular exam: Present: regular rate, normal rhythm, normal heart sounds, +S1, +S2 - Abdominal Exam Abdominal exam: Present: soft, Non-Tender, normal bowel sounds - Neurological Exam Neurological exam: Present: alert, oriented X3 - Expanded Neurological Exam Cranial nerves: EOM function (II, III, IV, ): Normal, facial sensation (V): Normal, facial palsy (VII): Normal, gag reflex (IX): Normal, spinal accessory function (XI): Normal, tongue deviation (XII): Normal Cerebellar function: finger to nose: Normal, heel to bah: Normal Motor strength - LUE: 5/5 Motor strength - RUE: 5/5 Motor strength - LLE: 5/5 Motor strength - RLE: 5/5 Upper motor neuron exam: pronator drift: Absent bilaterally Sensory exam upper extremity: light touch: Normal Sensory exam lower extremity: light touch: Normal Coma Scale Eye Opening: Spontaneous Coma Scale Motor Response: Obeys Commands Coma Scale Verbal Response: Oriented Coma Scale Total: 15 - Psychiatric Psychiatric exam: Present: normal affect, normal mood - Skin Skin exam: Present: warm, dry, intact Course Vital Signs Temperature 98.4 F 05/18/18 08:32 Pulse Rate 88 05/18/18 08:32 Respiratory Rate 20 05/18/18 08:32 Blood Pressure 139/87 05/18/18 08:32 O2 Sat by Pulse Oximetry 93 05/18/18 08:32 Temperature 98.4 F 05/18/18 08:32 Pulse Rate 88 05/18/18 08:32 Respiratory Rate 20 05/18/18 08:32 Blood Pressure 139/87 05/18/18 08:32 O2 Sat by Pulse Oximetry 93 05/18/18 08:32 Oxygen Delivery Oxygen Delivery Room Air Medical Decision Making - MDM Narrative Medical decision making narrative: Due to the patient presenting to the emergency department with possible seizure we will obtain basic laboratory testing and a head CT. Due to the patient not having any previous history of seizures the patient will likely need admission to the hospital for further evaluation and management of possible new onset seizure. Patient's laboratory testing is unremarkable other than alkaline phosphatase which is a nonspecific finding at this time. Patient's head CT was negative for acute process. Due to the patient having new onset seizure I feel it is important for the patient to be admitted to the hospital for further evaluation and management of her seizures. I called and spoke with the admitting hospitalist Dr. Espinal and she is accepted the patient to their service. Patient be admitted to the hospital at this time. - Medical Records Medical records reviewed: Yes I reviewed the patient's medical records. - Lab Data Lab results reviewed: Yes I reviewed the patient's lab results. Result diagrams: 05/18/18 08:34 05/18/18 08:34 Lab Results 05/18/18 05/18/18 Range/Units 08:34 08:34 WBC 6.4 (4.3-11.1) K/mcL RBC 4.60 (3.82-4.97) M/mcL Hgb 13.6 (11.5-15.4) g/dL Hct 41.1 (35.3-44.9) % MCV 89.3 (83.0-100.0) fL MCH 29.6 (28.0-33.3) pg MCHC 33.1 (31.6-35.5) g/dL RDW 14.0 (11.5-14.5) % Plt Count 259 (140-400) K/mcL MPV 9.9 (9.4-12.4) fL Immature Gran % 0.6 (0-4) % Seg Neutrophils % 65.1 % Lymphocytes % 19.6 % Monocytes % 5.7 % Eosinophils % 7.6 % Basophils % 1.4 % Neutrophils # 4.2 (1.6-8.9) K/mcL Lymphocytes # 1.3 (0.6-4.6) K/mcL Monocytes # 0.4 (0.0-1.3) K/mcL Eosinophils # 0.5 (0.0-0.6) K/mcL Basophils # 0.1 (0.0-0.2) K/mcL Sodium 136 (136-145) mEq/L Potassium 3.9 (3.5-5.1) mEq/L Chloride 102 (98-107) mEq/L Carbon Dioxide 26 (23-29) mEq/L BUN 16 (6-20) mg/dL Creatinine 0.71 (0.60-1.20) mg/dL Est GFR ( Amer) > 60 (> 60) Est GFR (Non-Af Amer) > 60 (> 60) BUN/Creatinine Ratio 23 (6-26) Glucose 120 H (70-105) mg/dL Calculated Osmolality 284 (280-300) Calcium 9.2 (8.6-10.3) mg/dL Phosphorus 2.6 L (2.7-4.5) mg/dL Magnesium 1.7 (1.6-2.6) mg/dL Total Bilirubin 0.4 (0.3-1.0) mg/dL AST 39 (13-39) Units/L ALT 39 (7-52) Units/L Alkaline Phosphatase 318 H (34-104) Units/L Serum Total Protein 7.2 (6.4-8.9) g/dL Albumin 4.1 (3.5-5.7) g/dL Globulin 3.1 (2.4-3.5) g/dL Albumin/Globulin Ratio 1.3 (1.1-2.2) - Radiology Data Radiology results reviewed: Yes I reviewed the patient's radiology results. Head CT 05/18/18 08:34 IMPRESSION: No acute intracranial abnormality. D/ / Chris Franco MD / Chris Franco MD Interpreting Provider: Chris Franco MD - EKG Data EKG #1 EKG attestation: Yes I reviewed and interpreted this EKG. EKG results narrative: EKG shows a sinus rhythm at a rate of 89 bpm, DC interval 150, QRS duration of 91, QTC 471. No evidence of STEMI on EKG. Attestation Statement - Attestation Attestation: I examined this patient and my medical decision-making was reviewed with the Resident Physician, Dr. Huerta. I agree with the documented findings, disposition and treatment plan as described except to the extent set forth below. Patient is a 53-year-old white female with a history of hypertension who presents seem or permit by EMS this morning following a generalized tonic- clonic seizure. Medics report that the boyfriend was with the patient at the time of the onset of the seizure patient was lying in bed and began to have generalized tonic-clonic jerking that he felt lasted for up to 30 minutes. Patient was reportedly foaming at the mouth verbally unresponsive and urinary incontinence and was having tongue biting. Patient was confused after the jerking stopped and on medic arrival was still postictal. On arrival to the emergency department the patient has a GCS of 15, awake alert and oriented 4, no focal neurologic deficits on examination, no history complaints of headaches dizziness or vertigo. Patient denies any history of falls or trauma prior to bedtime last night. Patient is not on any blood thinners. Patient has never had any seizure history or been placed on seizure medications in the past. Patient has no significant history of alcohol abuse. I agree with patient's physical exam findings as documented. Vital signs are stable on arrival patient's resting comfortably in no acute distress with no focal deficits. Patient underwent lab evaluation and CT imaging of the head. Patient was placed on cardiac monitoring and continuous pulse ox, seizure precautions were instituted an IV was established. Patient had an EKG which was normal sinus rhythm without acute ischemia. Patient was resting comfortably throughout her ED course and has not had a recurrence of her seizure activity while in the department. Patient labs and imaging all are within normal limits. Patient is not on the any medications currently that should lower her seizure threshold. At this time is unclear as to the etiology of her seizures so plan will be to admit the patient to the hospitalist service for further evaluation and management.
[2018-05-18 08:56] LABS: Basophils # 0.1 K/mcL (0.0-0.2); Basophils % 1.4 %; Eosinophils # 0.5 K/mcL (0.0-0.6); Eosinophils % 7.6 %; Hematocrit 41.1 % (35.3-44.9); Hemoglobin 13.6 g/dL (11.5-15.4); Immature Granulocytes % 0.6 % (0-4); Lymphocytes # 1.3 K/mcL (0.6-4.6); Lymphocytes % 19.6 %; Mean Corpuscular HGB Conc 33.1 g/dL (31.6-35.5); Mean Corpuscular Hemoglobin 29.6 pg (28.0-33.3); Mean Corpuscular Volume 89.3 fL (83.0-100.0); Mean Platelet Volume 9.9 fL (9.4-12.4); Monocytes # 0.4 K/mcL (0.0-1.3); Monocytes % 5.7 %; Neutrophils # 4.2 K/mcL (1.6-8.9); Platelet Count 259 K/mcL (140-400); Segmented Neutrophils % 65.1 %
[2018-05-18 09:16] LABS: Alanine Aminotransferase 39 Units/L (7-52); Albumin 4.1 g/dL (3.5-5.7); Albumin/Globulin Ratio 1.3 (1.1-2.2); Alkaline Phosphatase 318 Units/L (34-104); Aspartate Amino Transferase 39 Units/L (13-39); BUN/Creatinine Ratio 23 (6-26); Bilirubin,Total 0.4 mg/dL (0.3-1.0); Blood Urea Nitrogen 16 mg/dL (6-20); Calcium 9.2 mg/dL (8.6-10.3); Carbon Dioxide 26 mEq/L (23-29); Chloride 102 mEq/L (98-107); Globulin 3.1 g/dL (2.4-3.5); Glucose 120 mg/dL (70-105); Magnesium 1.7 mg/dL (1.6-2.6); Osmolality,Calculated 284 (280-300); Phosphorous 2.6 mg/dL (2.7-4.5); Potassium 3.9 mEq/L (3.5-5.1); Sodium 136 mEq/L (136-145); Total Protein 7.2 g/dL (6.4-8.9); eGFR For Non-African Americans > 60 (> 60)
[2018-05-18] MEDS ORDERED: *HR* HYDROcodone/Acet 5/325 mg TABLET PO PRN (09:55)
[2018-05-18] MEDS ORDERED: *HR* OxyCODONE Immed Rel 5 MG TABLET PO PRN (09:55)
[2018-05-18] MEDS ORDERED: Naloxone 0.4 MG/ML INJ IVP PRN (09:55)
[2018-05-18] MEDS ORDERED: Acetaminophen 325 MG TABLET PO PRN (09:55)
--- NOTE | 2018-05-18 11:49 | Internal Med History&Physical ---
Date of Encounter: 05/18/18 Time of Encounter: 11:47 Internal Medicine - H&P: HPI Chief complaint: New Onset seizure Admitted From: Home Plans for Post Hospital Care: Home History of present illness: Ms. Land is a 53 year old female with PMH of Depression, HTN, Chronic pain , smokes THC only, presents with witnesses new onset seizure. Patient was seen and evaluated at the bedside with her partner and her children. Her partner reports been waking up this morning and patient was found to be having tonic-clonic seizures, with associated tongue biting, forming in the mouth,of consciousness. Postictal, the patient had altered mentation, and urinary incontinence. This is her first ever seizure episode. The patient reports she has no remembrance of recollection of any of these events. Seizure was said to have lasted for 30 minutes at least. She denies any changes in her chronic medications, she has been on gabapentin for chronic back pain and reports he was changed earlier in the week to another medication. She denies illicit drug use. She denies any preceding trauma. At the time of review, she has no neurologic deficits. She denies chest pain or shortness of breath However, her partner describes multiple episodes of apnea when patient sleeps with sever snoring The patient has never been tested for sleep apnea She denies any abdominal symptoms, no genitourinary symptoms Workup in the ER currently unremarkable, head CT is negative for any acute intracranial abnormalities. She reports a family history of epilepsy in her mother who was on Valium from age of 25 till time of . She will be placed on observation for new onset seizures, more work up will be done Past Med Surg Social Fam HX - Past Medical History Medical history: hypertension, other Additional medical history: neuropathy Psychiatric history: no psych history - Past Surgical History Surgical History: breast surgery Additional surgical history: left shoulder surgery, vein removal bilateral lower extremities - Social History Smoking Status: Never smoker Smokeless Tobacco Status: No Alcohol use: none Drug use: none - Family History Mother Hx Family Cardiac Disorders: Yes (Hypertension) Hx Family Endocrine Disorder: Yes (Diabetes) Son Hx Family Cardiac Disorders: Yes (Hypertension) Hx Family Endocrine Disorder: Yes (Diabetes) Internal Medicine - H&P: Meds Doxepin HCl 10 mg PO HS 10/02/17 [History] Meloxicam 15 mg PO DAILY 10/02/17 [History] amLODIPine [Norvasc] 5 mg PO DAILY 10/02/17 [History] hydroCHLOROthiazide [Hydrochlorothiazide] 25 mg PO DAILY 10/02/17 [History] Amitriptyline [Elavil] 20 mg PO HS 05/18/18 [History] Paroxetine [Paxil] 20 mg PO DAILY 05/18/18 [History] Ranitidine HCl [Acid Entomology Professor] 150 mg PO DAILY 05/18/18 [History] 3 Allergy/AdvReac Type Severity Reaction Status Date / Time No Known Allergies Allergy Verified 05/18/18 09:25 All Systems PM: A 10-system review of systems was performed and is negative for pertinent findings except as documented above in the HPI. - Constitutional Constitutional: no chills, no fever(s), no night sweats - EENT Eyes: no change in vision, no discharge, no pain, no photophobia Ears: no ear discharge, no ear pain, no tinnitus Nose, mouth and throat: no dysphagia, no nasal discharge, no neck pain, no sore throat - Cardiovascular Cardiovascular ROS IM: no chest pain, no diaphoresis, no dyspnea, no lightheadedness, no palpitations, no syncope - Respiratory Respiratory: snoring - Gastrointestinal Gastrointestinal: no abdominal pain, no diarrhea, no hematemesis, no hematochezia, no melena, no nausea, no vomiting - Genitourinary Genitourinary: no change in urinary stream, no dysuria, no flank pain, no hematuria - Musculoskeletal Musculoskeletal ROS IM: no numbness, no tingling - Integumentary Integumentary IM: no rash, no unusual bruising - Neurological Neurological ROS: as per HPI - Hematologic/Lymphatic Hematologic/Lymphatic: no easy bruising - Constitutional Vitals: Temp Pulse Resp BP Pulse Ox 98.4 F 79 18 148/81 91 05/18/18 11:19 05/18/18 11:19 05/18/18 11:19 05/18/18 11:19 05/18/18 11:19 General appearance: Present: A&O X 3, pleasant, no acute distress, obese Exam: see detailed exam below - Head Head exam: Present: atraumatic, normocephalic - Eye Eye exam: Present: PERRL, conjuntiva pink, sclera anicteric Pupils: Present: PERRL - ENT Additional comments: lateral aspect of tongue with laceration, no current bleeding - Neck Neck exam general surgery: Present: supple, trachea midline. Absent: lymphadenopathy - Respiratory Respiratory exam: Present: CTAB. Absent: accessory muscle use, rales, rhonchi, wheezes - Cardiovascular Cardiovascular exam: Present: RRR, +S1, +S2. Absent: diastolic murmur, gallop, rubs, systolic murmur - GI/Abdominal GI/Abdominal exam: Present: normal bowel sounds, soft, no peritoneal signs. Absent: distended, tenderness - Extremities Exam Extremities exam: Present: warm, radial pulses palpable and symmetrical. Absent : calf tenderness, cyanotic, pedal edema - Neurological Exam Neurological exam: Present: alert, CN II-XII intact, oriented X3, no focal deficits. Absent: pronater drift, facial droop, speech deficit - Skin Skin exam: Present: dry, intact Internal Med - H&P Results - Labs CBC & Chem 7: 05/18/18 08:34 05/18/18 08:34 - Assessment and plan (1) New onset seizure Current Visit: Yes Status: Acute Assessment and plan: no curent inciting cause per emd list no preceding trauma send urine toxicology due to presence of family hx and duration of sizure->30 mins, luana l start on keppra, first dose now Consult placed with neurology EEG will be done as outpatient per neurologist Obtain Brain MRi Seizure precautions (2) DVT prophylaxis Current Visit: Yes Status: Acute Assessment and plan: ambulate (3) Hypertension Current Visit: Yes Status: Chronic Assessment and plan: resume home meds Qualifiers: Hypertension type: essential hypertension Qualified Code(s): I10 - Essential (primary) hypertension (4) Sleep apnea Current Visit: Yes Status: Suspected Assessment and plan: suspected , based on sleep pattern described by spouse Sleep study as outpatient Qualifiers: Sleep apnea type: unspecified type Qualified Code(s): G47.30 - Sleep apnea , unspecified - Time Spent With Patient Total time spent is greater than 50% in coordination of care (as documented) at patient's floor/unit and/or counseling patient:
[2018-05-18] MEDS ORDERED: levETIRAcetam 250 MG TABLET PO ONE (12:05)
[2018-05-18] MEDS ORDERED: levETIRAcetam 250 MG TABLET PO SCH (12:15)
[2018-05-18 13:50] LABS: Bilirubin,Urine Negative (Negative); Blood,Urine Negative (Negative); Clarity,Urine Clear (Clear); Color,Urine Yellow (Yellow); Glucose,Urine (UA) Normal (Normal); Ketones,Urine Negative (Negative); Leukocyte Esterase,Urine Negative (Negative); Nitrite,Urine Negative (Negative); PH,Urine 7.5 pH Units (5.0-8.0); Protein,Urine Negative (Neg-Trace); Specific Gravity,Urine 1.014 (1.010-1.025); Urobilinogen,Urine Normal (Normal)
[2018-05-18 13:59] LABS: Amphetamine Screen,Urine Negative ng/mL (Cutoff=1000); Barbiturate Screen,Urine Negative ng/mL (Cutoff=200); Benzodiazepines Screen,Urine Negative ng/mL (Cutoff=300); Cannabinoid Screen,Urine Positive ng/mL (Cutoff = 50); Cocaine Screen,Urine Negative ng/mL (Cutoff= 300); Opiate Screen,Urine Negative ng/mL (Cutoff=300); Phencyclidine Screen,Urine Negative ng/mL (Cutoff=25)
--- NOTE | 2018-05-18 14:49 | Neurology - Consult Note ---
Date of Encounter: 05/18/18 Time of Encounter: 14:45 Assessment and Plan (1) New onset seizure Current Visit: Yes Status: Acute This patient apparently had a unprovoked new onset seizure the description sounds like a typical tonic-clonic seizure. Currently she seems to be back to her baseline she did have a postictal period and also has urinary incontinence and tongue bite and that spell sounds like a typical seizure. 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 CT scan of the head is negative. She is scheduled for an MRI of the brain. At the moment considering the event seems to be quite typical suggest starting her on anticonvulsive medication Keppra 500 mg twice a day. Considering the history of snoring she may have a sleep apnea she would require sleeping his studies that could be done as an outpatient at the same time EEG could be done as an outpatient as well. If patient remained stable and MRI of the brain is negative she could be discharged home with follow-up with neurology in 3-4 weeks Patient should also be on seizure precautions Patient was asked not to drive until seizure-free for 6 months. Patient was asked not to work in close proximity of machines with moving parts, not to swim unsupervised, not to take tub baths or showers with water accumulation, and not to work at high places. History of Present Illness HPI: Ms. Land is a 53 year old female with history of depression , HTN, Chronic pain , presents with witnesses new onset seizure. According to the patient she had a seizure but not able to recall much according to Her family she was found to t have tonic-clonic seizures, with associated tongue biting, forming in the mouth, as well as loss of of consciousness. Patient also has urinary incontinence she is not able to recall any of the event, She is not sure about the time but according to the family may have lasted altogether for about 30 minutes. Patient was then brought into the emergency room and was admitted for further workup and management She denies any changes in her chronic medications, she has been on gabapentin for chronic back pain and reports it was changed earlier in the week to another medication. She denies illicit drug use. But she does smokes marijuana She denies any preceding trauma. her partner describes multiple episodes of apnea when patient sleeps with sever snoring, The patient has never been tested for sleep apnea head CT is negative for any acute intracranial abnormalities. She reports a family history of epilepsy in her mother Now patient seems to be back to her baseline Past Med Surg Social Fam HX - Past Medical History Medical history: hypertension, other Additional medical history: neuropathy Psychiatric history: no psych history - Past Surgical History Surgical History: breast surgery Additional surgical history: left shoulder surgery, vein removal bilateral lower extremities - Social History Smoking Status: Never smoker Smokeless Tobacco Status: No Alcohol use: none Drug use: none - Family History Mother Hx Family Cardiac Disorders: Yes (Hypertension) Hx Family Endocrine Disorder: Yes (Diabetes) Son Hx Family Cardiac Disorders: Yes (Hypertension) Hx Family Endocrine Disorder: Yes (Diabetes) Medications and Allergies Doxepin HCl 10 mg PO HS 10/02/17 [History] Meloxicam 15 mg PO DAILY 10/02/17 [History] amLODIPine [Norvasc] 5 mg PO DAILY 10/02/17 [History] hydroCHLOROthiazide [Hydrochlorothiazide] 25 mg PO DAILY 10/02/17 [History] Amitriptyline [Elavil] 20 mg PO HS 05/18/18 [History] Paroxetine [Paxil] 20 mg PO DAILY 05/18/18 [History] Ranitidine HCl [Acid Wet End Helper] 150 mg PO DAILY 05/18/18 [History] 3 Allergy/AdvReac Type Severity Reaction Status Date / Time No Known Allergies Allergy Verified 05/18/18 09:25 All Systems: The remainder of the systems were reviewed and are negative Physical Examination - Vital Signs Vital Signs: Initial Vital Signs Temp Pulse Resp BP Pulse Ox 98.4 F 88 20 139/87 93 05/18/18 08:32 05/18/18 08:32 05/18/18 08:32 05/18/18 08:32 05/18/18 08:32 - Exam Exam: GENERAL: Comfortable in no acute distress HEENT: Normal LUNGS: CTA HEART: RRR, S1 S2 Audible, no murmur EXTREMITIES: No Pedal edema. DETAILED NEUROLOGICAL EXAMINATION: MENTAL STATUS: Oriented to person, place, date and situation. Memory: knows the President, Aware of recent events Recent Memory Intact Cranial Nerve Examination: CN - II: Visual Acuity, Field of Vision Normal, Fundus examination: No disk edema, Pupils- size shape reaction to light and accommodation: All normal. CN III, IV, : External ocular movements were intact, Pupils were reactive, Nodrooping of the eyelids CN V: Sensation over the face to light touch and pinprick all normal. Corneal reflexes not tested, jaw jerk normal. CN VII: No facial asymmetry, no flattening of nasolabial folds, no difficulty in closing the eyes, no loss of forehead wrinkles, no difficulty in eye-closure, frowning raising eyebrows. CNVIII: No significant hearing loss CN IX, X: Uvula centralized not deviated, Gag reflex: Not tested CN X1: Sternocleidomastoid, trapezius, normal or evidence of any weakness. CN X11: No Dysarthria, no wasting or fibrilation f tongue muscles, no deviation, tongue muscle strength normal. Motor examination: No hypertrophy, tone was normal, power grade 0-5 Upper limbs Proximal- No difficulty in lifting the arms above the head. Distal- No weakness in distal muscles On formal testing 5/5 all over Lower limbs On formal testing 5/5 all over Coordination: Jonbgg-oh-swge normal. Target pursuit normal finger tapping normal, Rapid alternating moment of wrist normal Sensory system: Superficial sensations- Touch normal. Pain- Pinprick, Temperature all normal, Deep sensation normal, Joint position sense normal. Cortical sensation, Tactile discrimination, localization and extinction all normal. Deep tendon reflexes. Symmetrical bilateral, No evidence of Babinski. No sign of meningeal irritation Gait Examination: Deferred - Constitutional General appearance: comfortable Results - Laboratory Findings CBC and BMP: 05/18/18 08:34 05/18/18 08:34 Abnormal lab findings: Abnormal lab results Glucose 120 mg/dL (70-105) H 05/18/18 08:34 Phosphorus 2.6 mg/dL (2.7-4.5) L 05/18/18 08:34 Alkaline Phosphatase 318 Units/L (34-104) H 05/18/18 08:34 U Marijuana (THC) Screen Positive ng/mL (Cutoff = 50) H 05/18/18 12:32 Consult Discharge Plan - Plan Referrals: Nuria Bethea DO [Primary Care Provider] -
[2018-05-18 19:35] LABS: Amphetamine Screen,Urine Negative ng/mL (Cutoff=1000); Barbiturate Screen,Urine Negative ng/mL (Cutoff=200); Benzodiazepines Screen,Urine Negative ng/mL (Cutoff=200); Cannabinoid Screen,Urine Positive ng/mL (Cutoff = 50); Cocaine Screen,Urine Negative ng/mL (Cutoff= 300); Opiate Screen,Urine Negative ng/mL (Cutoff=300); Phencyclidine Screen,Urine Negative ng/mL (Cutoff=25)
[2018-05-18] MEDS: levETIRAcetam 250 MG TABLET PO SCH (20:05)
[2018-05-18] MEDS ORDERED: Doxepin Hcl [Doxepin Hcl] 10 MG PO SCH (21:00)
[2018-05-19 08:20] VITALS: BP 132/83
[2018-05-19] MEDS ORDERED: amLODIPine 5 MG TABLET PO SCH (09:00)
[2018-05-19] MEDS ORDERED: Famotidine 20 MG TABLET PO SCH (09:00)
[2018-05-19] MEDS ORDERED: hydroCHLOROthiazide 25 MG TABLET PO SCH (09:00)
[2018-05-19] MEDS: levETIRAcetam 250 MG TABLET PO SCH (09:06)
--- NOTE | 2018-05-19 09:17 | Discharge Summary ---
- NOTES TO OUTPATIENT PROVIDER Notes to Outpatient Provider: follow-up with neurology in 3-4 weeks. Orders not resulted at time of discharge: Pending orders 05/19/18 08:09 BMP [Basic Metabolic Panel] Routine CBC no Diff [Complete Blood Count w/o Diff] [HEME] Routine Date of Encounter: 05/19/18 Time of Encounter: 09:14 - Discharge Diagnosis (1) New onset seizure Priority: Primary Status: Resolved (2) Hypertension Priority: Secondary Status: Chronic Qualifiers: Hypertension type: essential hypertension Qualified Code(s): I10 - Essential (primary) hypertension (3) DVT prophylaxis Priority: Secondary Status: Acute (4) Sleep apnea Priority: Secondary Status: Suspected Qualifiers: Sleep apnea type: unspecified type Qualified Code(s): G47.30 - Sleep apnea , unspecified Hospital course: Ms. Land is a 53 year old female past medical history significant for depression, hypertension, chronic pain, tobacco abuse. Presented to the hospital due to a witnessed tonicoclonic seizure, associated with urinary incontinence, weakness and postictal state. As part of the seizure workup and pain MRI was done, which showed: 1. No acute infarct, intracranial hemorrhage, or significant mass effect. 2. Chronic small vessel ischemic white matter disease and diffuse cerebral volume loss. 3. Abnormal appearance of C4 vertebral body is partially imaged. While this may be degenerative, recommend correlation with CT of cervical spine for definitive evaluation and exclude pathology. Patient is started on Keppra 500 mg by mouth twice a day. Recommended by the neurologist to refrain from driving for at least 6 months SEIZURE-free. No seizure-like activity in the past 24 hours, patient stable to be discharged home. Follow-up with neurology. - Time Spent with Patient Total time spent providing and/or coordinating discharge services: Greater than 30 minutes - Discharge Medications Prescriptions: levETIRAcetam [Keppra] 500 mg PO BID 30 Days #60 tablet Home Medications: Doxepin HCl 10 mg PO HS 10/02/17 [History] Meloxicam 15 mg PO DAILY 10/02/17 [History] amLODIPine [Norvasc] 5 mg PO DAILY 10/02/17 [History] hydroCHLOROthiazide [Hydrochlorothiazide] 25 mg PO DAILY 10/02/17 [History] Amitriptyline [Elavil] 20 mg PO HS 05/18/18 [History] Paroxetine [Paxil] 20 mg PO DAILY 05/18/18 [History] Ranitidine HCl [Acid Plumbing Instructor] 150 mg PO DAILY 05/18/18 [History] levETIRAcetam [Keppra] 500 mg PO BID 30 Days #60 tablet 05/19/18 [Rx] Allergies/Adverse Reactions: 3 Allergy/AdvReac Type Severity Reaction Status Date / Time No Known Allergies Allergy Verified 05/18/18 09:25 Date of admission: 05/18/18 09:57 Primary care physician: Ian Burroughs Consults: 05/18/18 11:49 Consult to Neurology [CONS] Routine Consulting Provider: Neurology [facility] Reason for Consult: new onset seizure Call Completed: Yes - Constitutional Vitals: Temp Pulse Resp BP Pulse Ox 98.4 F 92 16 132/83 93 05/19/18 08:19 05/19/18 08:19 05/19/18 08:19 05/19/18 08:19 05/19/18 08:19 General appearance: Present: A&O X 3, pleasant, no acute distress, obese Exam: General: Alert and oriented 4. No acute distress. Skin:Normal color, no rash, no lesions. HEENT:EOM, pupils equal, round and reactive. Cardiovascular: Regular rhythm and rate, Normal S1 & S2, no rubs, murmurs or gallops. Lungs: Clear to auscultation bilaterally, no wheezes or crackles. Abdomen: Obese, Soft, non-tender, no rigidity. NABS in all 4 quadrants, Extremities: No deformity, no edema or tenderness, no joint swelling or clubbing. Neurological: Normal cognition and motor skills. CN II-XII intact. Rest of the physical exam is non contributory - Patient Status Disposition: Home, Self-Care Condition: Good Functional capacity at discharge: independent ambulation Overall status at discharge: patient is back to baseline - Discharge Instructions Follow Up With: Nuria Bethea DO [Primary Care Provider] - - Diet and Activity Activity: resume usual activities as tolerated Diet: advance to your usual diet
[2018-05-19 09:30] LABS: Hematocrit 43.6 % (35.3-44.9); Hemoglobin 14.4 g/dL (11.5-15.4); Mean Corpuscular Hemoglobin 29.6 pg (28.0-33.3); Mean Corpuscular Volume 89.5 fL (83.0-100.0); Mean Platelet Volume 10.6 fL (9.4-12.4); Platelet Count 321 K/mcL (140-400); Red Blood Count 4.87 M/mcL (3.82-4.97); Red Cell Distribution Width 14.1 % (11.5-14.5)
[2018-05-19 09:48] LABS: Calcium 9.2 mg/dL (8.6-10.3); Carbon Dioxide 28 mEq/L (23-29); Chloride 102 mEq/L (98-107); Glucose 111 mg/dL (70-105); Potassium 3.7 mEq/L (3.5-5.1); Sodium 137 mEq/L (136-145); eGFR For Non-African Americans > 60 (> 60)
[2018-05-19 10:16] LABS: BUN/Creatinine Ratio 21 (6-26); Blood Urea Nitrogen 16 mg/dL (6-20); Osmolality,Calculated 286 (280-300)
--- NOTE | 2018-05-22 16:31 | Electrocardiograph Report ---
[place] [id number] Test Date: 2018-05-18 Pat Name: Alyssa Land Department: [id number] Room: 3B35 Gender: F Electrical Tech/Project Manager: : 1965 Requested By: Mickey Huerta Order Number: [id number] Reading MD: Robin Nguyen Measurements Intervals Emerson Rate: 89 P: 55 ID: [id number] QRS: -6 QRSD: 91 T: 50 QT: 387 QTc: 471 Interpretive Statements Sinus rhythm Low voltage, precordial leads Electronically Signed On 05-22-2018 16:29:23 EDT by Robin Nguyen
== END 2018-05-19 11:01 | disposition home or self-care (01) ==
LOC: 3BNU 08:24 → EMEROOARM 08:24 → 3BNU 10:53
PROVIDERS: ADMIT Internal Medicine; ATTEND Internal Medicine